=== PATIENT | female | born 1990 | race Caucasian/White ===

== ENCOUNTER → 2016-11-26 | Outpatient (CLI) | payer OTHER, BC, SELFPAY ==
[2016-11-26 18:20] LABS: Progesterone Level 11.11 ng/mL (See Comment)
[2016-11-26 18:21] LABS: Follicle Stimulating Hormone 2.2 mIU/mL
== END | disposition home or self-care (01) ==
PROVIDERS: Family Provider Family Medicine; PCP Family Medicine; Visit Provider Nurse Practitioner Women's Health
DX: N97.0 Female infertility associated with anovulation (principal)
CPT/HCPCS: 36415; 83001; 84144

== ENCOUNTER → 2018-08-22 10:06 | Outpatient (CLI) | payer BC, SELFPAY ==
[2018-03-26 13:40] VITALS: BMI 26.2
--- NOTE | 2018-08-22 15:00 | TISS_PTH ---
PATIENT: MARISOL GOLD LOC: [facility] U#:[id number] AGE/SX: 34/F ROOM: RE08/22/[address]: Lev Bishop : 1990 BED: DIS: SPEC #: [id number] RECD: 08/22/18 17:26 STATUS: JOSELIN AMEZCUA #: [id number] TYLER: 08/22/18 15:[address]: Lev Bishop DEPT: SURGICAL PATHOLOGY RECD BY: Cecile Lomas ENTERED: 08/25/18 10:29 SP TYPE: Tissue Bx OT DR: Dr. Xiao Mike DO Tissues: Skin of lower extremity and hip Procedures: PAS Fungus (control) Special Stain Group I Surgery Specimen Level IV HEADER OPERATION: Punch biopsy, persistent rash PRE-OP DIAGNOSIS: circular patch of erythematous and scaly right lower leg, suspect psoriasis versus fungal TISSUE SUBMITTED: 4 mm punch biopsy skin rash MICROSCOPIC DIAGNOSIS Skin rash, punch biopsy: Hyperkeratosis and mild dermal perivascular chronic inflammation. Special stain for fungi is negative for organisms; matched control is appropriate. See comment. JONI:yisel 08/26/18 COMMENT Changes consistent with psoriasis are not seen. Correlation with clinical findings and appropriate follow up are necessary. Case has been reviewed in consultation with Dr. Cota who concurs with the above diagnosis. IDC:AM MICROSCOPIC DESCRIPTION Slides are reviewed. GROSS DESCRIPTION Received is one container labeled with the patient's name and not further designated. The specimen consists of a punch biopsy of lozano-white skin measuring 0.4 cm in diameter and 0.3 cm in length. The specimen is totally submitted in one cassette. / JONI:yisel 08/25/18 TC:3 CPT: 67754, 68509
== END ==
PROVIDERS: Family Provider Family Medicine; PCP Family Medicine; Referring Provider Family Medicine; Visit Provider Family Medicine
DX: R21 Rash and other nonspecific skin eruption (principal)
CPT/HCPCS: 88305; 88312

== ENCOUNTER → 2018-08-22 16:07 | Outpatient (CLI) | payer BC, SELFPAY ==
[2018-03-26 13:40] VITALS: BMI 26.2
== END ==
PROVIDERS: Family Provider Family Medicine; PCP Family Medicine; Visit Provider Family Medicine
DX: R21 Rash and other nonspecific skin eruption (principal)